=== PATIENT | female | born 1970 ===

== ENCOUNTER 2018-02-01 07:38 | Emergency (ER) | payer MEDICAID ==
[2018-02-01 07:55] VITALS: RESP 18
[2018-02-01] MEDS ORDERED: DiphenhydrAMINE 50 mg/ml Inj IVP STA (08:14)
[2018-02-01] MEDS ORDERED: DiphenhydrAMINE 50 mg/ml Inj ONE (08:20)
[2018-02-01 08:34] LABS: BASO % 0.6 % (0.0-2.0); EOS # 0.1 K/uL (0.0-0.7); EOS % 1.9 % (0.0-4.0); HEMOGLOBIN 13.2 g/dL (11.0-16.0); LYMPH # 1.9 K/uL (1.0-4.3); LYMPH % 29.9 % (20.0-40.0); MEAN CELL VOLUME 82.8 fL (81.0-99.0); MEAN CORPUSCULAR HEMOGLOBIN 28.4 pg (27.0-31.0); MEAN CORPUSCULAR HGB CONC 34.3 g/dL (33.0-37.0); MEAN PLATELET VOLUME 8.1 fL (7.2-11.7); MONO # 0.4 K/uL (0.0-0.8); MONO % 6.6 % (0.0-10.0); NEUT # 3.8 K/uL (1.8-7.0); RBC 4.65 Mil/uL (3.80-5.20); RED CELL DISTRIBUTION WIDTH 13.4 % (11.5-14.5); WHITE BLOOD COUNT 6.3 K/uL (4.8-10.8)
[2018-02-01 08:36] LABS: SQUAMOUS EPITHIAL 5 /hpf (0-5); URINE BILIRUBIN NEGATIVE (NEGATIVE); URINE BLOOD NEGATIVE (NEGATIVE); URINE CLARITY Clear (Clear); URINE COLOR Straw (YELLOW); URINE GLUCOSE (UA) NORMAL (Normal); URINE LEUKOCYTE ESTERASE NEG Leu/uL (Negative); URINE PROTEIN NEGATIVE (NEGATIVE); URINE UROBILINOGEN NORMAL mg/dL (0.2-1.0)
--- NOTE | 2018-02-01 08:39 | C.PDOC ---
History Of Present Illness 47 y/o female presents to ED with c/o occipital headache for 1 week associated with nausea and photophobia. Patient reports taking Tylenol with intermittent relief. Patient admits to feeling anxious and taking Ativan this morning, denies palpitations, chest pain, sob, vomiting or any other complaints at this time. Time Seen by Provider: 02/01/18 07:55 Chief Complaint (Nursing): Palpitations History Per: Patient History/Exam Limitations: no limitations Onset/Duration Of Symptoms: Days Current Symptoms Are (Timing): Still Present Quality: "Pain" Past Medical History Reviewed: Historical Data, Nursing Documentation, Vital Signs Vital Signs: Last Vital Signs Temp 98.7 F 02/01/18 07:51 Pulse 102 H 02/01/18 07:51 Resp 18 02/01/18 07:51 BP 157/93 H 02/01/18 07:51 Pulse Ox 98 02/01/18 09:35 - Medical History PMH: Anxiety Surgical History: No Surg Hx - [facility] Procedures NASAL LACERATION SUTURE (01/04/15) TETANUS TOXOID ADMINIST (01/04/15) Family History: States: No Known Family Hx - Social History Hx Tobacco Use: No Hx Alcohol Use: No Hx Substance Use: No Review Of Systems Except As Marked, All Systems Reviewed And Found Negative. Eyes: Positive for: Other (photophobia) Gastrointestinal: Positive for: Nausea Neurological: Positive for: Headache Physical Exam - Physical Exam Appears: Non-toxic, No Acute Distress Skin: Warm, Dry, No Rash Head: Atraumatic, Normacephalic Eye(s): bilateral: PERRL, EOMI Oral Mucosa: Moist Neck: Normal ROM, Supple Cardiovascular: Rhythm Regular Respiratory: Normal Breath Sounds, No Rales, No Rhonchi, No Wheezing Gastrointestinal/Abdominal: Soft, No Tenderness, No Guarding, No Rebound Neurological/Psych: Oriented x3, Normal Speech, Normal Cognition ED Course And Treatment - Laboratory Results Result Diagrams: 02/01/18 08:30 02/01/18 08:30 ECG: Interpreted By Me, Viewed By Me ECG Rhythm: Sinus Rhythm Rate From EC (BPM) O2 Sat by Pulse Oximetry: 98 (RA) Pulse Ox Interpretation: Normal Medical Decision Making Medical Decision Making: Assessment: Headache Plan: CT head, EKG, Blood work, POC urine preg ordered. Benadryl, Reglan and IV fluids administered. Progress: On re eval, patient states headache resolved. Patient discharged with advised f.u with PMD in 2 days Disposition Counseled Patient/Family Regarding: Studies Performed, Diagnosis, Need For Followup, Rx Given - Disposition Disposition: HOME/ ROUTINE Disposition Time: 09:34 Condition: IMPROVED Additional Instructions: follow up with your doctor in 2 days call to make an appointment return to ER if symptoms worsens or progress Instructions: Headache, Adult (DC) Forms: Gen Discharge Inst [employer], [employer] ([employer]), Work Excuse Print Language: TRISTANIAN - Clinical Impression Clinical Impression: Headache - Scribe Statement The provider has reviewed the documentation as recorded by the Praveenaibjhon Mcmahon All medical record entries made by the Bhavik were at my direction and personally dictated by me. I have reviewed the chart and agree that the record accurately reflects my personal performance of the history, physical exam, medical decision making, and the department course for this patient. I have also personally directed, reviewed, and agree with the discharge instructions and disposition.
[2018-02-01 08:45] LABS: ALB/GLOB RATIO 1.2 (1.0-2.1); ALBUMIN 4.5 g/dL (3.5-5.0); ALT/SGPT 51 U/L (9-52); AST/SGOT 33 U/L (14-36); BLOOD UREA NITROGEN 11 mg/dL (7-17); CALCIUM 9.3 mg/dl (8.6-10.4); GFR AFRICAN-AMERICAN > 60; GFR NON-AFRICAN AMERICAN > 60
--- NOTE | 2018-02-01 08:48 | CT ---
PROCEDURE: CT HEAD WITHOUT CONTRAST. HISTORY: dizziness COMPARISON: None available. TECHNIQUE: Axial computed tomography images were obtained through the head/brain without intravenous contrast. Radiation dose: Total exam DLP = 852 mGy-cm. This CT exam was performed using one or more of the following dose reduction techniques: Automated exposure control, adjustment of the mA and/or kV according to patient size, and/or use of iterative reconstruction technique. FINDINGS: HEMORRHAGE: No intracranial hemorrhage. BRAIN: No mass effect or edema. No atrophy or chronic microvascular ischemic changes. VENTRICLES: Unremarkable. No hydrocephalus. CALVARIUM: Unremarkable. PARANASAL SINUSES: Unremarkable as visualized. No significant inflammatory changes. MASTOID AIR CELLS: Unremarkable as visualized. No inflammatory changes. OTHER FINDINGS: None. IMPRESSION: Normal CT of the Head.
[2018-02-01 09:43] VITALS: BP 136/75; PULSE 80; TEMP 98.3; O2SAT 100
--- NOTE | 2018-02-01 09:54 | RAD ---
Chest x-ray single frontal view History: Chest pain. Comparison: None available. Findings: Mild venous congestion. Bibasilar breast and nipple shadows. Heart size within normal limits. Question mild calcific tendinopathy of the left proximal humerus. Impression: Mild venous congestion. Bibasilar breast and nipple shadows. Heart size within normal limits. Question mild calcific tendinopathy of the left proximal humerus.
--- NOTE | 2018-02-03 02:30 | CARD ---
APPROVED REPORT EKG Measurement Heart [id number] <Conclusion> Normal sinus rhythm Normal ECG
== END 2018-02-01 09:47 | disposition home or self-care (01) ==
LOC: C.ER 07:38
DX: R51 Headache (principal)
CPT/HCPCS: 70450; 71045; 80053; 81001; 84484; 85025; 93005; 96374; 96375; 99284; J1200; J2765